=== PATIENT | male | born 1995 | race Caucasian/White ===

== ENCOUNTER 2016-10-02 11:10 | Emergency (ER) | payer SELFPAY ==
[2016-10-02 11:43] LABS: HEMATOCRIT 44.3 % (42.0-54.0); HEMOGLOBIN 15.4 g/dL (13.5-17.5); LYMPHOCYTES 34.3 % (15-50); MCH 30.1 pg (26.0-34.0); MCHC 34.8 g/dL (31.0-37.0); MCV 86.5 fL (80.0-100.0); MEAN PLATELET VOLUME 9.2 fL (7.4-10.4); PLATELET COUNT 206 10x3/uL (130-400); RBC 5.12 10x6/uL (4.20-6.10); RDW 12.5 % (11.5-14.5)
[2016-10-02 11:47] LABS: APPEARANCE CLEAR (CLEAR); BILIRUBIN NEGATIVE (NEGATIVE); COLOR STRAW (YELLOW); GLUCOSE NEGATIVE (NEGATIVE); KETONE NEGATIVE (NEGATIVE); LEUKOCYTE ESTERASE NEGATIVE (NEGATIVE); NITRITE NEGATIVE (NEGATIVE); PROTEIN NEGATIVE (NEGATIVE); SPECIFIC GRAVITY 1.005 (1.005-1.020); UROBILINOGEN NORMAL (NORMAL)
[2016-10-02 11:53] LABS: UDS - AMPHET NEGATIVE QUAL (NEGATIVE); UDS - BENZO NEGATIVE QUAL (NEGATIVE); UDS - COCAINE NEGATIVE QUAL (NEGATIVE); UDS - METH NEGATIVE QUAL (NEGATIVE); UDS - OPIATE NEGATIVE QUAL (NEGATIVE); UDS - PCP NEGATIVE QUAL (NEGATIVE); UDS - THC NEGATIVE QUAL (NEGATIVE)
[2016-10-02 11:55] LABS: UDS - BARB NEGATIVE QUAL (NEGATIVE)
[2016-10-02 12:02] LABS: ALBUMIN 4.6 g/dL (3.4-5.0); ALKALINE PHOSPHATASE 63 U/L (46-116); ALT (SGPT) 23 U/L (10-68); CALC OSMOLALITY 276 mosm/kg (275-300); CALCIUM 9.7 mg/dL (8.5-10.1); CARBON DIOXIDE 30.3 mmol/L (21.0-32.0); CHLORIDE - SERUM 102 mmol/L (98-107); CREATININE - SERUM 0.9 mg/dL (0.6-1.3); GLUCOSE 91 mg/dL (74-106); POTASSIUM - SERUM 3.9 mmol/L (3.5-5.1); PROTEIN - SERUM 8.1 g/dL (6.4-8.2); SODIUM 138 mmol/L (136-145); UREA NITROGEN 15 mg/dL (7-18); eGFR NON AFRICAN AMERICAN > 90 mL/min (90-120)
== END 2016-10-02 14:44 | disposition home or self-care (01) ==
LOC: D.ER 11:10
PROVIDERS: Emergency Medicine
DX: E86.0 Dehydration (principal); R53.1 Weakness; R51 Headache; F17.200 Nicotine dependence, unspecified, uncomplicated

== ENCOUNTER 2016-10-08 16:25 | Emergency (ER) | payer SELFPAY | END 2016-10-08 19:25 | disposition left against medical advice (07) | LOC: D.ER 16:25 | DX: I49.9 Cardiac arrhythmia, unspecified (principal) ==

== ENCOUNTER 2017-01-28 21:06 | Emergency (ER) | payer SELFPAY ==
[2017-01-28 22:06] LABS: APPEARANCE CLEAR (CLEAR); BILIRUBIN NEGATIVE (NEGATIVE); COLOR YELLOW (YELLOW); GLUCOSE NEGATIVE (NEGATIVE); KETONE NEGATIVE (NEGATIVE); LEUKOCYTE ESTERASE NEGATIVE (NEGATIVE); NITRITE NEGATIVE (NEGATIVE); PROTEIN NEGATIVE (NEGATIVE); SPECIFIC GRAVITY 1.015 (1.005-1.020); UROBILINOGEN NORMAL (NORMAL)
[2017-01-28 22:32] LABS: BASOPHILS 0.4 % (0-2); HEMATOCRIT 40.1 % (42.0-54.0); HEMOGLOBIN 13.9 g/dL (13.5-17.5); IMMATURE GRANULOCYTES 0.1 % (0-5); LYMPHOCYTES 39.4 % (15-50); MCH 30.5 pg (26.0-34.0); MCHC 34.7 g/dL (31.0-37.0); MCV 87.9 fL (80.0-100.0); MEAN PLATELET VOLUME 9.6 fL (7.4-10.4); MONOCYTES 9.5 % (2-11); NEUTROPHILS 46.6 % (40-80); PLATELET COUNT 210 10x3/uL (130-400); RBC 4.56 10x6/uL (4.20-6.10); RDW 12.6 % (11.5-14.5)
[2017-01-28 22:54] LABS: ALBUMIN 4.3 g/dL (3.4-5.0); ALKALINE PHOSPHATASE 53 U/L (46-116); ALT (SGPT) 32 U/L (10-68); AMYLASE - SERUM 45 U/L (25-115); BILIRUBIN - TOTAL 0.42 mg/dL (0.2-1.3); CALC OSMOLALITY 275 mosm/kg (275-300); CALCIUM 8.9 mg/dL (8.5-10.1); CARBON DIOXIDE 30.3 mmol/L (21.0-32.0); CHLORIDE - SERUM 102 mmol/L (98-107); CREATININE - SERUM 1.2 mg/dL (0.6-1.3); GLUCOSE 87 mg/dL (74-106); LIPASE 146 U/L (73-393); PROTEIN - SERUM 7.8 g/dL (6.4-8.2); SODIUM 138 mmol/L (136-145); UREA NITROGEN 16 mg/dL (7-18); eGFR NON AFRICAN AMERICAN 80 mL/min (90-120)
== END 2017-01-28 23:45 | disposition home or self-care (01) ==
LOC: D.ER 21:06
PROVIDERS: Family Medicine
DX: R10.11 Right upper quadrant pain (principal); R10.13 Epigastric pain; K80.50 Calculus of bile duct without cholangitis or cholecystitis without obstruction; K58.9 Irritable bowel syndrome, unspecified; F17.200 Nicotine dependence, unspecified, uncomplicated

== ENCOUNTER 2017-02-25 10:18 | Emergency (ER) | payer SELFPAY ==
[2017-02-25 10:51] LABS: BASOPHILS 0.4 % (0-2); EOSINOPHILS 3.2 % (0-7); HEMATOCRIT 42.1 % (42.0-54.0); HEMOGLOBIN 14.8 g/dL (13.5-17.5); LYMPHOCYTES 20.7 % (15-50); MCHC 35.2 g/dL (31.0-37.0); MCV 88.1 fL (80.0-100.0); MEAN PLATELET VOLUME 9.8 fL (7.4-10.4); MONOCYTES 13.5 % (2-11); NEUTROPHILS 62.2 % (40-80); PLATELET COUNT 179 10x3/uL (130-400); RBC 4.78 10x6/uL (4.20-6.10); RDW 11.8 % (11.5-14.5); WBC 5.7 10x3/uL (4.8-10.8)
[2017-02-25 10:56] LABS: APPEARANCE CLEAR (CLEAR); BILIRUBIN NEGATIVE (NEGATIVE); COLOR YELLOW (YELLOW); GLUCOSE NEGATIVE (NEGATIVE); KETONE NEGATIVE (NEGATIVE); LEUKOCYTE ESTERASE NEGATIVE (NEGATIVE); NITRITE NEGATIVE (NEGATIVE); PROTEIN NEGATIVE (NEGATIVE); SPECIFIC GRAVITY 1.005 (1.005-1.020); UROBILINOGEN NORMAL (NORMAL)
[2017-02-25 11:07] LABS: ALBUMIN 4.3 g/dL (3.4-5.0); ALKALINE PHOSPHATASE 59 U/L (46-116); ALT (SGPT) 24 U/L (10-68); CALC OSMOLALITY 278 mosm/kg (275-300); CALCIUM 9.2 mg/dL (8.5-10.1); CARBON DIOXIDE 27.8 mmol/L (21.0-32.0); CHLORIDE - SERUM 103 mmol/L (98-107); GLUCOSE 100 mg/dL (74-106); LIPASE 109 U/L (73-393); POTASSIUM - SERUM 4.2 mmol/L (3.5-5.1); PROTEIN - SERUM 7.6 g/dL (6.4-8.2); SODIUM 140 mmol/L (136-145); UREA NITROGEN 13 mg/dL (7-18); eGFR NON AFRICAN AMERICAN > 90 mL/min (90-120)
== END 2017-02-25 12:30 | disposition home or self-care (01) ==
LOC: D.ER 10:18
PROVIDERS: Emergency Medicine
DX: K80.50 Calculus of bile duct without cholangitis or cholecystitis without obstruction (principal); F17.200 Nicotine dependence, unspecified, uncomplicated

== ENCOUNTER 2017-09-15 19:28 | Emergency (ER) | payer SELFPAY | END 2017-09-15 21:00 | disposition home or self-care (01) | LOC: D.ER 19:28 | DX: H02.9 Unspecified disorder of eyelid (principal); B02.39 Other herpes zoster eye disease; F17.200 Nicotine dependence, unspecified, uncomplicated ==

== ENCOUNTER 2019-01-18 19:48 | Emergency (ER) | payer SELFPAY ==
[~2019-01-18] VITALS: Ht 180.3 cm; Wt 90.7 kg
[2019-01-18 19:55] VITALS: Ht 180.3 cm; Wt 90.7 kg
[2019-01-18] MEDS ORDERED: BACTRIM 400-801 TAB PO (22:35)
[2019-01-18] MEDS ORDERED: KEFLEX500 MG PO (22:35)
[2019-01-18 23:05] VITALS: BP 131/70
== END 2019-01-18 23:05 | disposition home or self-care (01) ==
LOC: D.ER 19:48
DX: L03.213 Periorbital cellulitis (principal)

== ENCOUNTER 2019-01-20 08:38 | Emergency (ER) | payer SELFPAY ==
[~2019-01-20] VITALS: Ht 180.3 cm; Wt 90.7 kg
[~2019-01-20 08:38] MED LIST: BACTRIM 400-801 TAB PO; KEFLEX500 MG PO
[2019-01-20 08:42] VITALS: Ht 180.3 cm; Wt 90.7 kg
[2019-01-20] MEDS ORDERED: HYDROCODON-ACE1 EAC7 PO (09:04)
[2019-01-20] MEDS ORDERED: CLEOCIN HCL300 MG PO (09:04)
[2019-01-20] MEDS ORDERED: MUPIROCIN22 GM TOPICAL (09:13)
[2019-01-20 09:53] VITALS: BP 118/77
== END 2019-01-20 09:57 | disposition home or self-care (01) ==
LOC: D.ER 08:38
DX: L03.213 Periorbital cellulitis (principal)

== ENCOUNTER 2020-11-07 16:36 | Emergency (ER) | payer BC ==
[~2020-11-07] VITALS: Ht 182.9 cm; Wt 106.8 kg
[~2020-11-07 16:36] MED LIST changes: +CLEOCIN HCL300 MG PO; +HYDROCODON-ACE1 EAC7 PO; +MUPIROCIN22 GM TOPICAL
[2020-11-07 16:53] VITALS: Ht 182.9 cm; Wt 106.8 kg
[2020-11-07 18:06] VITALS: BP 144/94
[2020-11-07] MEDS ORDERED: IBUPROFEN800 MG PO (18:11)
== END 2020-11-07 18:15 | disposition home or self-care (01) ==
LOC: D.ER 16:36
DX: R07.9 Chest pain, unspecified (principal)